=== PATIENT | male | born 1960 | race Caucasian/White ===

== ENCOUNTER 2020-12-01 11:14 | Emergency (ER) | payer OTHER, SELFPAY ==
[2020-12-01] VITALS (9 sets, daily range): BP systolic 127–129; BP diastolic 84–88; PULSE 59–72; RESP 10–29; TEMP 36.6; O2SAT 92–99; BMI 26.3
[2020-12-01 14:01] LABS: Add Manual Diff / Slide Review NO; Basophils Absolute Auto 0 /uL (0-100); Basophils Percent Auto 0.2 % (0-2); Eosinophils Absolute Auto 0 /uL (0-450); Eosinophils Percent Auto 0.3 % (2-4); Hematocrit 49.8 % (41-53); Hemoglobin 17.4 g/dL (13.5-17.5); Lymphocytes Absolute Auto 1100 /uL (1100-4500); Lymphocytes Percent Auto 11.5 % (25-40); Mean Corpuscular Hemoglobin 32.4 PG (26-34); Mean Corpuscular Volume 92.6 fL (80-100); Monocytes Absolute Auto 900 /uL (0-900); Monocytes Percent Auto 9.1 % (3-14); Neutrophils Absolute Auto 7900 /uL (1500-7000); Neutrophils Percent Auto 78.9 % (50-75); Platelet Count 345 X10^3/uL (150-400); Prothrombin Time 11.7 SECONDS (10.1-12.7); Red Blood Cell Count 5.38 X10^6/uL (4.5-5.9); Red Cell Distribution Width 12.6 % (11.6-14.8)
[2020-12-01] MEDS: SODIUM CHLORIDE 0.9% 1,000 ML 1000 ML IV (14:03)
[2020-12-01 14:04] LABS: PTT Partial Thromboplastin Tim 33 SECONDS (26.4-36.2)
[2020-12-01] MEDS: ONDANSETRON 4 MG/2 ML INJ IV (14:04)
[2020-12-01 14:07] LABS: Alanine Aminotransferase 18 IU/L (<50); Albumin 4.9 g/dL (3.5-5.0); Albumin Globulin Ratio 1.2 (1.0-2.8); Alkaline Phosphatase 102 U/L (38-126); Aspartate Aminotransferase 24 IU/L (17-59); BUN Creatinine Ratio 19.8 (6-22); Bilirubin Total 0.7 mg/dL (0.2-1.3); Blood Urea Nitrogen 18 mg/dL (9-20); Calcium 10.2 mg/dL (8.4-10.2); Carbon Dioxide 26 mmol/L (22-32); Chloride 98 mmol/L (98-107); Estimated Glomerular Filt Rate > 60.0 mL/min (>60); Globulin 4.1 g/dL (1.7-4.1); Glucose 98 mg/dL (70-100); HEMOLYSIS < 15 (0-50); Lipase 847 U/L (23-300); Sodium 136 mmol/L (137-145)
[2020-12-01 14:33] LABS: COVID19 -Nasal RAPID Negative (Negative)
--- NOTE | 2020-12-01 15:23 | ED.NAVMDI ---
HPI - Nausea/Vomiting/Diarrhea General Chief complaint: Nausea/Vomiting/Diarrhea Stated complaint: fatigue/not eating/vomiting Time Seen by Provider: 12/01/20 15:23 Source: patient Mode of arrival: Ambulatory Limitations: no limitations History of Present Illness HPI Narrative: This is a 60-year-old male comes emergency department with complaint of nausea and heartburn that is been going on for the last several weeks. He states that he had 2 similar episodes in the past over the past year she feels fatigued, he has heartburn kind of radiating up his chest. Um and starting from the epigastric area. He will have nausea. He has not had active vomiting unless he induces it. He denies any abdominal pain otherwise. No back or flank pain. Patient has not had any fevers. He has had some nasal congestion little bit of cough. Patient was supposed to have a hernia repair and colonoscopy today and had started his prep. Several days before that he had started feeling nauseated having increasing frequency of heartburn and then after starting colonoscopy prep had worsening. Patient was also concerned he may have developed COVID is his brother had had some similar symptoms. He was COVID swab 2 days ago in anticipation of his surgery and that was negative. Patient denies any other surgeries besides a prior hernia repair on the other side. He denies any daily medications. Patient does smoke daily. He drinks alcohol typically a couple drinks weekly he denies any illicit or recreational drugs. Related Data Previous Rx's Medication Instructions Recorded alum-mag hydroxide-simeth [Maalox 10 ml PO Q6H PRN #300 ml 12/01/20 Advanced] lidocaine HCl [Lidocaine Viscous] 5 ml MUCOUS MEMBRANE BID PRN #100 12/01/20 ml ondansetron 4 mg PO Q6H PRN #10 tab 12/01/20 Allergies Allergy/AdvReac Type Severity Reaction Status Date / Time No Known Drug Allergies Allergy Verified 12/01/20 11:26 Review of Systems Review of Systems ROS Unobtainable: All systems reviewed & are unremarkable except as noted in HPI and below Patient History Surgical History H/O hernia repair Social History Smoking Status: Current every day smoker Smoking Status: Current every day smoker alcohol intake frequency: holidays/special occasions only Substance Use Type: does not use Exam Narrative Exam Narrative: GENERAL: Alert and oriented x three, well-nourished male in mild distress. HEENT: Head normocephalic, atraumatic, EOMI, pupils reactive, face symmetric, moist mucous membranes NECK: Supple, full range of motion CARDIOVASCULAR: Regular rate and rhythm without murmurs, rubs or gallops. RESPIRATORY: Breath sounds equal bilaterally, no wheezes rales or rhonchi. ABDOMEN: Soft, nontender. Normoactive bowel sounds all 4 quadrants. No guarding or rebound, rigidity, no mass : No CVA tenderness EXTREMITIES: Normal range of motion, no clubbing or edema. Neurovascularly intact NEUROLOGICAL: Cranial nerves II through XII grossly intact. Moving all extremities SKIN: Warm, dry, no petechiae, no rashes or lesions. Initial Vital Signs Initial Vital Signs: Vital Signs Temperature 97.8 F 12/01/20 11:27 Pulse Rate 72 12/01/20 11:27 Respiratory Rate 14 12/01/20 11:27 Blood Pressure 127/84 12/01/20 11:27 Pulse Oximetry 97 12/01/20 11:27 Course Orders Ordered: ED Orders 12/01/20 13:30 Complete Blood Count AUTO DIFF Stat Comprehensive Metabolic Panel Stat Lipase Stat Partial Thromboplastin Time Stat Prothrombin Time INR Stat 12/01/20 13:54 EKG-12 Lead Stat 12/01/20 14:10 COVID19 -Nasal swab/Pre-Proc Stat 12/01/20 15:24 US abdomen limited Stat Discontinued Medications Al Hydrox/Mg Hydrox/Simethicone 20 ml/ Lidocaine HCl 15 ml 0 ml PO NOW ONE Stop: 12/01/20 17:05 Last Admin: 12/01/20 17:28 Dose: 35 ml Documented by: CTRGAGE Sodium Chloride (Normal Saline 0.9%) 1,000 mls @ 1,000 mls/hr IV BOLUS ONE Stop: 12/01/20 14:53 Last Infusion: 12/01/20 15:12 Dose: 1,000 mls/hr Documented by: JOSE LUIS Admin: 12/01/20 14:03 Dose: 1,000 mls/hr Documented by: CHENG Ondansetron HCl (Ondansetron 4 Mg/2 Ml Inj) 4 mg IV NOW ONE Stop: 12/01/20 13:55 Last Admin: 12/01/20 14:04 Dose: 4 mg Documented by: CHENG Reevaluation(s) Reevaluation #1: Patient feels significantly improved after GI cocktail. Time: 18:05 Vital Signs Vital signs: Vital Signs - 8 hr 12/01/20 11:27 12/01/20 15:03 12/01/20 15:30 Temperature 97.8 F Pulse Rate 72 68 59 L Respiratory Rate 14 Blood Pressure 127/84 Pulse Oximetry 97 98 98 12/01/20 16:00 12/01/20 16:30 12/01/20 17:00 Temperature Pulse Rate 61 65 64 Respiratory Rate 10 L 14 Blood Pressure Pulse Oximetry 92 99 98 12/01/20 17:30 12/01/20 17:43 12/01/20 18:00 Temperature Pulse Rate 61 63 65 Respiratory Rate 15 16 29 H Blood Pressure 129/88 Pulse Oximetry 98 97 98 MDM - Nausea/Vomiting/Diarrhea Lab Data Attestation: I reviewed the patient's lab results. Result diagrams: 12/01/20 13:30 12/01/20 13:30 Labs: Lab Results 12/01/20 12/01/20 12/01/20 Range/Units 13:30 13:30 13:30 WBC 10.0 (4.5-11.0) X10^3/uL RBC 5.38 (4.5-5.9) X10^6/uL Hgb 17.4 (13.5-17.5) g/dL Hct 49.8 (41-53) % MCV 92.6 (80-100) fL MCH 32.4 (26-34) PG MCHC 35.0 (30-36) % RDW 12.6 (11.6-14.8) % Plt Count 345 (150-400) X10^3/uL Neut % (Auto) 78.9 H (50-75) % Lymph % (Auto) 11.5 L (25-40) % Rawlins % (Auto) 9.1 (3-14) % Eos % (Auto) 0.3 L (2-4) % Baso % (Auto) 0.2 (0-2) % Neut # (Auto) 7900 H (9693-9034) /uL Lymph # (Auto) 1100 (0475-9634) /uL Rawlins # (Auto) 900 (0-900) /uL Eos # (Auto) 0 (0-450) /uL Baso # (Auto) 0 (0-100) /uL PT 11.7 (10.1-12.7) SECONDS INR 1.0 (0.9-1.3) APTT 33 (26.4-36.2) SECONDS Sodium 136 L (137-145) mmol/L Potassium 4.0 (3.4-5.1) mmol/L Chloride 98 (98-107) mmol/L Carbon Dioxide 26 (22-32) mmol/L BUN 18 (9-20) mg/dL Creatinine 0.91 (0.66-1.25) mg/dL Estimated GFR > 60.0 (>60) mL/min BUN/Creatinine Ratio 19.8 (6-22) Glucose 98 (70-100) mg/dL Calcium 10.2 (8.4-10.2) mg/dL Total Bilirubin 0.7 (0.2-1.3) mg/dL AST 24 (17-59) IU/L ALT 18 (<50) IU/L Alkaline Phosphatase 102 (38-126) U/L Total Protein 9.0 H (6.3-8.2) g/dL Albumin 4.9 (3.5-5.0) g/dL Globulin 4.1 (1.7-4.1) g/dL Albumin/Globulin Ratio 1.2 (1.0-2.8) Lipase 847 H (23-300) U/L SARS-CoV-2 (PCR) (Negative) 12/01/20 Range/Units 14:10 WBC (4.5-11.0) X10^3/uL RBC (4.5-5.9) X10^6/uL Hgb (13.5-17.5) g/dL Hct (41-53) % MCV (80-100) fL MCH (26-34) PG MCHC (30-36) % RDW (11.6-14.8) % Plt Count (150-400) X10^3/uL Neut % (Auto) (50-75) % Lymph % (Auto) (25-40) % Rawlins % (Auto) (3-14) % Eos % (Auto) (2-4) % Baso % (Auto) (0-2) % Neut # (Auto) (3858-3039) /uL Lymph # (Auto) (9567-0257) /uL Rawlins # (Auto) (0-900) /uL Eos # (Auto) (0-450) /uL Baso # (Auto) (0-100) /uL PT (10.1-12.7) SECONDS INR (0.9-1.3) APTT (26.4-36.2) SECONDS Sodium (137-145) mmol/L Potassium (3.4-5.1) mmol/L Chloride (98-107) mmol/L Carbon Dioxide (22-32) mmol/L BUN (9-20) mg/dL Creatinine (0.66-1.25) mg/dL Estimated GFR (>60) mL/min BUN/Creatinine Ratio (6-22) Glucose (70-100) mg/dL Calcium (8.4-10.2) mg/dL Total Bilirubin (0.2-1.3) mg/dL AST (17-59) IU/L ALT (<50) IU/L Alkaline Phosphatase (38-126) U/L Total Protein (6.3-8.2) g/dL Albumin (3.5-5.0) g/dL Globulin (1.7-4.1) g/dL Albumin/Globulin Ratio (1.0-2.8) Lipase (23-300) U/L SARS-CoV-2 (PCR) Negative (Negative) Imaging Data Abdominal x-ray: Radiologist's Impression: Lane Peguero 60 M 1960 [address] [address] ReportSigned Patient: Lane Peguero EMR#: [id number]: 1960Acct:[id number]/Sex: 60 / MDate of Service: 12/01/20Loc: EDAccession Number: [id number] Procedure: US abdomen limited Ordering Provider: Princess Reid D.O. PROCEDURE: US ABDOMEN LIMITED INDICATIONS: nausea, elevated lipase TECHNIQUE: Real-time focused scanning was performed of the abdomen, with image documentation. COMPARISON: None. FINDINGS: Normal hepatic parenchymal echogenicity, echotexture, and contour. No focal hepatic mass. No intrahepatic or extrahepatic biliary ductal dilatation demonstrated. Normal appearance of the gallbladder and pancreas. IMPRESSION: No sonographic findings of cholecystitis or pancreatitis. Dictated by: Alex Lucio M.D. on 12/01/2020 at 16:16 Approved by: Alex Lucio M.D. on 12/01/2020 at 16:20 [facility] Narrative Medical decision making narrative: This is a 60 year old male who comes emergency department with frequent heartburn. Patient has altered some nausea and he has induced emesis but it has not had emesis otherwise. He denies actual abdominal pain. Patient had recent colonoscopy/hernia surgery prep and was scheduled for both today. Patient's labs show protein as well as lipase of 847. COVID swab is negative without major lab changes otherwise. Ultrasound does not show any biliary ductal, gallbladder or liver. Discussed with patient he has been able to tolerate orals at home. Plan for onto a nausea medication, some pain control and follow-up in the next 24-48 hours with repeat lipase. Patient does have a primary care doctor Dr. Nunez. Discussed with patient alcohol is a common cause and was encouraged with cessation of alcohol and he is to follow up with primary care for further evaluation. Discussed with patient alcohol cessation. Clear liquid diet and may advance of his pain resolved. Discharge Plan Departure Patient Disposition: Home Clinical Impression: Pancreatitis Instructions: DI for Pancreatitis Activity Restrictions/Additional Instructions: Follow-up with your physician next week for recheck. Call Friday morning for an appointment. I do want you to get a repeat lipase level checked over the next 24-48 hours. You can go to outpatient lab here at [facility] to have this drawn. There is an order slip included. You may take antinausea medicine 1 tablet every 6 hours as needed. You may also take pain medication as prescribed. Prescription sent to [facility]. I recommend stopping alcohol. Please return for fevers, new or worsening abdominal pain, worsening reflux symptoms, lightheadedness or passing out, persistent vomiting, black or bloody stools or other new or concerning symptoms. Prescriptions: New alum-mag hydroxide-simeth [Maalox Advanced] 200-200-20 mg/5 mL suspension 10 ml PO Q6H PRN (Reason: dyspepsia) Qty: 300 RF: 0 Lidocaine Viscous 2 % solution 5 ml mucous membrane BID PRN (Reason: pain) Qty: 100 RF: 0 ondansetron 4 mg tablet,disintegrating 4 mg PO Q6H PRN (Reason: nausea and vomiting) Qty: 10 RF: 0 Referrals: Sanket Nunez DO [Primary Care Provider] -
[2020-12-01] MEDS: MAG HYDROX/ALUMINUM/SIMETH SUS 20 ML, LIDOCAINE VISCOUS 2% 15 ML PO (17:28)
== END 2020-12-01 18:27 | disposition home or self-care (01) ==
PROVIDERS: Emergency Provider Emergency Medicine; PCP Family Medicine
DX: K85.90 Acute pancreatitis without necrosis or infection, unspecified (principal); R10.13 Epigastric pain; Z20.822 Contact with and (suspected) exposure to COVID-19
CPT/HCPCS: 36415; 76705; 80053; 83690; 85025; 85610; 85730; 87635; 93005; 96361; 96374; 99284; C9803; J2405

== ENCOUNTER → 2020-12-05 11:37 | Outpatient (CLI) | payer OTHER, SELFPAY ==
[2020-12-05 12:31] LABS: Alanine Aminotransferase 17 IU/L (<50); Albumin 4.5 g/dL (3.5-5.0); Albumin Globulin Ratio 1.2 (1.0-2.8); Alkaline Phosphatase 102 U/L (38-126); Aspartate Aminotransferase 46 IU/L (17-59); BUN Creatinine Ratio 18.4 (6-22); Bilirubin Total 0.7 mg/dL (0.2-1.3); Blood Urea Nitrogen 18 mg/dL (9-20); Calcium 9.7 mg/dL (8.4-10.2); Carbon Dioxide 25 mmol/L (22-32); Chloride 102 mmol/L (98-107); Estimated Glomerular Filt Rate > 60.0 mL/min (>60); Globulin 3.8 g/dL (1.7-4.1); Glucose 106 mg/dL (70-100); Lipase 68 U/L (23-300); Potassium 4.5 mmol/L (3.4-5.1); Sodium 135 mmol/L (137-145); Total Protein 8.3 g/dL (6.3-8.2)
[2020-12-05 12:38] LABS: HEMOLYSIS 62 (0-50)
== END ==
PROVIDERS: PCP Family Medicine; Referring Provider Emergency Medicine; Visit Provider Emergency Medicine
DX: K85.90 Acute pancreatitis without necrosis or infection, unspecified (principal)
CPT/HCPCS: 36415; 80053; 83690

== ENCOUNTER 2024-05-26 12:31 | Emergency (ER) | payer OTHER, SELFPAY ==
[2024-05-26 12:54] VITALS: BP 142/91; PULSE 74; RESP 18; TEMP 36.9; O2SAT 96; BMI 25.7
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
--- NOTE | 2024-05-26 15:03 | DI.RAD.S_ITS ---
PROCEDURE: XR TIBIA FUBULA RT 2V INDICATIONS: right ankle fx; cocnern for proximal fibula fx TECHNIQUE: 2 views of the tibia and fibula were acquired. COMPARISON: [facility], , XR ANKLE RT MIN 3V, 05/26/2024, 13:36. FINDINGS: Bones: No fractures or dislocations. No suspicious bony lesions. Soft tissues: No suspicious soft tissue calcifications or masses. IMPRESSION: No acute bony abnormality. Dictated by: Chris Hollins M.D. on 05/26/2024 at 15:31 Approved by: Chris Hollins M.D. on 05/26/2024 at 15:32
[2024-05-26] MEDS: ACETAMINOPHEN 325 MG TABLET 975 MG PO (15:31)
[2024-05-26] MEDS: ONDANSETRON 4 MG ODT SL (17:31)
[2024-05-26 18:33] VITALS: BP 150/92; PULSE 74; RESP 20; TEMP 37; O2SAT 100
== END 2024-05-26 18:35 | disposition home or self-care (01) ==
PROVIDERS: Emergency Provider Physician Assistant
DX: S82.51XA Displaced fracture of medial malleolus of right tibia, initial encounter for closed fracture (principal); J98.11 Atelectasis; R07.89 Other chest pain; V49.9XXA Car occupant (driver) (passenger) injured in unspecified traffic accident, initial encounter; F17.210 Nicotine dependence, cigarettes, uncomplicated
CPT/HCPCS: 29515; 71046; 73590; 73610; 99284

== ENCOUNTER → 2025-01-01 11:40 | Outpatient (CLI) | payer OTHER, SELFPAY ==
[2025-01-01 12:24] LABS: Add Manual Diff / Slide Review NO; Basophils Absolute Auto 0 /uL (0-100); Basophils Percent Auto 0.4 % (0-2); Eosinophils Absolute Auto 200 /uL (0-450); Eosinophils Percent Auto 2.4 % (2-4); Hematocrit 43.5 % (41-53); Hemoglobin 15.4 g/dL (13.5-17.5); Lymphocytes Absolute Auto 1900 /uL (1100-4500); Lymphocytes Percent Auto 21.2 % (25-40); Mean Corpuscular HGB Conc 35.4 % (30-36); Mean Corpuscular Hemoglobin 31.6 PG (26-34); Mean Corpuscular Volume 89.2 fL (80-100); Monocytes Absolute Auto 800 /uL (0-900); Monocytes Percent Auto 9.5 % (3-14); Neutrophils Absolute Auto 5900 /uL (1500-7000); Neutrophils Percent Auto 66.5 % (50-75); Platelet Count 309 X10^3/uL (150-400); Red Blood Cell Count 4.87 X10^6/uL (4.5-5.9); Red Cell Distribution Width 13.4 % (11.6-14.8); White Blood Cell Count 8.9 X10^3/uL (4.5-11.0)
[2025-01-01 12:37] LABS: Alanine Aminotransferase 20 IU/L (<50); Albumin 4.7 g/dL (3.5-5.0); Albumin Globulin Ratio 1.2 (1.0-2.8); Alkaline Phosphatase 130 U/L (38-126); Amylase 99 U/L (30-110); Aspartate Aminotransferase 22 IU/L (17-59); BUN Creatinine Ratio 17.5 (6-22); Bilirubin Total 0.9 mg/dL (0.2-1.3); Blood Urea Nitrogen 18 mg/dL (9-20); Calcium 9.2 mg/dL (8.4-10.2); Carbon Dioxide 19 mmol/L (22-32); Chloride 104 mmol/L (98-107); Cholesterol 194 mg/dL (140-199); Estimated Glomerular Filt Rate > 60 mL/min (>60); Globulin 3.9 g/dL (1.7-4.1); Glucose 96 mg/dL (70-99); HDL Cholesterol 50 mg/dL (40-60); HEMOLYSIS < 15 (0-50); LDL Cholesterol Calculated 121 mg/dL (<100); Lipase 70 U/L (23-300); Potassium 4.1 mmol/L (3.4-5.1); Sodium 136 mmol/L (137-145); Total Protein 8.6 g/dL (6.3-8.2); Triglycerides 116 mg/dL (35-150)
[2025-01-01 12:54] LABS: Iron 112 ug/dL (49-181)
[2025-01-01 13:06] LABS: Total Iron Binding Capacity 343 ug/dL (261-462)
[2025-01-01 13:12] LABS: Ferritin 98 ng/mL (18-464)
[2025-01-01 14:02] LABS: Folate 9.2 ng/mL (2.76-20.0); Vitamin B12 463 pg/mL (239-931)
[2025-01-02 08:12] LABS: Apolipoprotein B 103 mg/dL (<90)
== END ==
PROVIDERS: Referring Provider Nurse Practitioner Family; Visit Provider Nurse Practitioner Family
DX: Z13.1 Encounter for screening for diabetes mellitus (principal); Z13.220 Encounter for screening for lipoid disorders; M54.9 Dorsalgia, unspecified; R53.83 Other fatigue; Z87.19 Personal history of other diseases of the digestive system
CPT/HCPCS: 36415; 80053; 80061; 82150; 82172; 82306; 82607; 82728; 82746; 83036; 83540; 83550; 83690; 85025